=== PATIENT | male | born 1965 | race Caucasian/White ===

== ENCOUNTER 2019-03-09 12:47 | Emergency (ER) | payer MEDICAID ==
[~2019-03-09] VITALS: Ht 182.9 cm; Wt 71.0 kg
[2019-03-09] MEDS ORDERED: AMLO2.5T45 PO (12:52)
[2019-03-09] MEDS ORDERED: NAPR-681 PO (12:52)
[2019-03-09] MEDS ORDERED: BENA5TAB6 PO (12:52)
[2019-03-09] MEDS ORDERED: MORPHINE SULFATE 4 MG/ML CPJ (NOT FOR IM USE) IV ONE ×2 (13:15→16:00)
[2019-03-09] MEDS ORDERED: ONDANSETRON HCL 4MG/2ML INJ IV ONE (13:15)
[2019-03-09 14:00] LABS: HEMOGLOBIN. 15.9 g/dL (14.0-18.0); MEAN CORPUSCULAR HEMOGLOBIN 32.2 pg (28.0-32.0); MEAN CORPUSCULAR VOLUME 95.2 fL (80.0-94.0); MEAN PLATELET VOLUME 8.6 fl (7.4-10.4); PLATELET 247 x1000/uL (130-400); RED BLOOD CELL COUNT 4.94 mill/uL (4.7-6.1); RED CELL DISTRIBUTION WIDTH 17.5 % (11.6-14.6)
[2019-03-09 14:02] LABS: CHLORIDE 94 mEq/L (98-107)
[2019-03-09 14:04] LABS: INR 1.1; PROTHROMBIN TIME 11.1 sec (9.6-11.0)
[2019-03-09 14:22] LABS: PLATELET ESTIMATE NORMAL
[2019-03-09] MEDS ORDERED: VANCOMYCIN 1 G PREMIX 200 ML IV SCH (14:45)
[2019-03-09 16:48] VITALS: BP 193/134
[2019-03-09] MEDS ORDERED: PIPERACILLIN/TAZOBACTAM 3.375GM/50ML PREMIX IV NR (17:24)
== END 2019-03-09 18:51 | disposition short-term general hospital (02) ==
LOC: ER 12:47
DX: I71.3 Abdominal aortic aneurysm, ruptured (principal); K55.9 Vascular disorder of intestine, unspecified; I10 Essential (primary) hypertension; F12.10 Cannabis abuse, uncomplicated
CPT/HCPCS: 36415; 74176; 80053; 83605; 83690; 85025; 85610; 86850; 86900; 86901; 96365; 96375; 96376; 99285; J2270; J2405; J3370